=== PATIENT | female | born 1995 | race Caucasian/White ===

== ENCOUNTER 2017-07-03 09:47 | Emergency (ER) | payer MEDICAID ==
[~2017-07-03] VITALS: Wt 62.0 kg
[~2017-07-03 09:47] MED LIST: AMOX500C2 PO; IBUP-1542 PO; IBUP800T25 PO; ONDA4TAB8 PO
[2017-07-03] MEDS ORDERED: SOD CHLORIDE 0.9% 1,000 ML IV STA (10:44)
[2017-07-03] MEDS ORDERED: ACETAMINOPHEN 500 MG TAB PO STA (10:44)
[2017-07-03] MEDS ORDERED: MECLIZINE 12.5 MG TAB PO ONE (11:00)
[2017-07-03] MEDS ORDERED: ONDA4TAB14 PO (12:50)
[2017-07-03] MEDS ORDERED: MECL12.574 PO (12:50)
[2017-07-03] MEDS ORDERED: ACET500C5 PO (12:51)
[2017-07-03 13:27] VITALS: BP 101/61; PULSE 65; RESP 18; TEMP 98.1
--- NOTE | 2017-07-03 13:54 | ERD ---
ER Documentation Chief Complaint Date/Time DATE: 07/03/17 TIME: 13:48 Chief Complaint cam few days HPI Patient a 22-year-old female with no past medical emergency department for concerns of a headache and dizziness comes 3 days. Patient describes the pain to be on her right frontal and temporal region. She denies any sudden, 10 out of 10, worsening onset of her headache. Patient describes the pain to be throbbing in nature. Patient states her current pain level is a 3 out of 10. Patient states she took only 1 tablet of ibuprofen yesterday with no alleviation of symptoms. Patient also reports nausea and vomiting. She also reports intermittent episodes of dizziness which last less than 1 minute. Patient states she is also feeling as if the room is spinning. Patient states with positional changes she has increasing sensation of dizziness. Patient denies any falls. Patient denies any extremity weakness or difficulty with ambulating. She denies any head injury, blurry vision, dysphagia, chest pain, shortness of breath, left upper extremity pain, diaphoresis or loss of consciousness. Patient denies any hearing changes, ear pain or recent viral URIs. ROS All systems reviewed and are negative except as per history of present illness. Medications Home Meds Active Scripts Acetaminophen* (Tylophen*) 500 Mg Capsule, 1 CAP PO Q6H Y for PAIN AND OR ELEVATED TEMP, #20 CAP Prov:JODY CABRERA PA-C 07/03/17 Ondansetron (Ondansetron Odt) 4 Mg Tab.rapdis, 4 MG PO Q6H Y for NAUSEA AND/OR VOMITING, #10 TAB Prov:JODY CABRERA PA-C 07/03/17 Meclizine Hcl* (Antivert*) 12.5 Mg Tab, 12.5 MG PO Q6H Y for DIZZINESS, #20 TAB Prov:JODY CABRERA PA-C 07/03/17 Amoxicillin* (Amoxicillin*) 500 Mg Cap, 500 MG PO TID for 10 Days, CAP Prov:DWIGHT LYNN MD 01/24/16 Ibuprofen* (Motrin*) 600 Mg Tab, 600 MG PO Q6H Y for PAIN AND OR ELEVATED TEMP, #30 TAB Prov:DWIGHT LYNN MD 01/24/16 Ibuprofen* (Motrin*) 800 Mg Tab, 800 MG PO Q6, #30 TAB Prov:KARINA ISIDRO PA-C 06/14/15 Allergies Allergies: Coded Allergies: No Known Drug Allergies (Verified Allergy, Unknown, 01/24/16) PMhx/Soc Medical and Surgical Hx: pt denies Medical Hx, pt denies Surgical Hx Hx Alcohol Use: No Hx Substance Use: No Hx Tobacco Use: No Smoking Status: Never smoker Physical Exam Vitals Vital Signs Date Time Temp Pulse Resp B/P Pulse Ox O2 Delivery O2 Flow Rate FiO2 07/03/17 13:27 98.1 65 18 101/61 99 Room Air 07/03/17 09:49 98.0 83 18 106/69 99 Physical Exam GENERAL: Well-developed, well-nourished female. Appears in no acute distress. Speaking in full sentences HEAD: Normocephalic, atraumatic. No deformities or ecchymosis. EYE: Pupils equal, round, and reactive to light. EOMs intact. No conjunctival erythema. No eye discharge. ENT: External ear without any masses or tenderness. Cerumen noted. TM visualized bilaterally, non-erythematous, non-bulging. Nasal mucosa pink with no discharge. Oropharynx is pink without any tonsillar erythema or exudates. NECK: Supple. No meningismus. Normal ROM of the neck. LUNG: Clear to auscultation bilaterally. No rhonchi, wheezing, rales or coarse breath sounds. HEART: Regular rate and rhythm. No murmurs, rubs or gallops. BACK: No midline tenderness. EXTREMITES: Equal pulses bilaterally. No peripheral clubbing, cyanosis or edema. No unilateral leg swelling. NEUROLOGIC: Alert and oriented x3, cooperative. Mood and affect appropriate to situation. Cranial nerves II through XII are grossly intact. Normal speech. Motor exam: 5/5 strength in upper and lower extremities. Sensory exam: Sensation intact to light touch on all four extremities. Cerebellar function exam: Rapid alternating movements intact. No dysmetria on [id number] test. Steady gait. No pronator drift. SKIN: Normal color. Warm and dry. No rashes or lesions. Results 24 hrs Current Medications Medications (Trade) Dose Ordered Sig/Karrie Route PRN Reason Start Time Stop Time Status Last Admin Dose Admin Sodium Chloride (NS) 1,000 ml @ 1,000 mls/hr Q1H STAT IV 07/03/17 10:44 07/03/17 11:43 DC 07/03/17 11:19 Acetaminophen (Tylenol Tab) 1,000 mg ONCE STAT PO 07/03/17 10:44 07/03/17 10:47 DC 07/03/17 11:17 Meclizine HCl (Antivert) 12.5 mg ONCE ONCE PO 07/03/17 11:00 07/03/17 11:01 DC 07/03/17 11:17 Procedures/MDM ED COURSE: The patient was stable throughout ED course. I kept the patient and/or family informed of laboratory and diagnostic imaging results throughout the ED course. MEDICATIONS GIVEN: IV fluids, meclizine, Tylenol Patient tolerated medication well with no adverse reactions. Patient reported improvement in pain. MEDICAL DECISION MAKING: This is a 22-year-old female who presents with headache and dizziness 3 days. Vital signs were reviewed. Patient was afebrile. Patient was not hypoxic. Patient states that the room is spinning. Episodes are intermittent lasting less than 1 minute. The dizziness is worse with sitting up and standing up. The patient denied any recent URIs. The patient denied hearing loss, diplopia or dysphagia. Neuro exam was normal. Urine test was negative. Patient had significant improvement in symptoms after giving fluids and Meclizine. Given these findings, the patient's presentation is most consistent with benign paroxysmal positional vertigo. I have a much lower clinical concern for intracranial hemorrhage, cerebral infarct, intracranial mass, acute focal neurological deficit, labyrinthitis, vestibular neuritis, Meniere's disease, ear foreign body or acute otitis media. PRESCRIPTIONS: Meclizine Zofran DISCHARGE: At this time, patient is stable for discharge and outpatient management. I have instructed the patient to follow-up with his/her primary care physician in 1-2 days. If symptoms persist, patient may need to see a specialist for further examinations and testing. I have instructed the patient to promptly return to the ER at any time for any new or worsening symptoms including increased increased pain, fever, nausea, vomiting, numbness, weakness, slurred speech, LOC. The patient and/or family expressed understanding of and agreement with this plan. All questions were answered. Home care instructions were provided. Departure Diagnosis: Primary Impression: Benign paroxysmal positional vertigo Laterality: unspecified laterality Qualified Code: H81.10 - Benign paroxysmal positional vertigo, unspecified laterality Condition: Stable Patient Instructions: Benign Positional Vertigo Referrals: GURPREET LESTER MD,WHIT TALAVERA,FADUMO LOWE MD, M.D., MICHAEL D MD PATEL,MANSI GALLEGO,RICKY MAS,[facility] YOU HAVE RECEIVED A MEDICAL SCREENING EXAM AND THE RESULTS INDICATE THAT YOU DO NOT HAVE A CONDITION THAT REQUIRES URGENT TREATMENT IN THE EMERGENCY DEPARTMENT. FURTHER EVALUATION AND TREATMENT OF YOUR CONDITION CAN WAIT UNTIL YOU ARE SEEN IN YOUR DOCTORS OFFICE WITHIN THE NEXT 1-2 DAYS. IT IS YOUR RESPONSIBILITY TO MAKE AN APPOINTMENT FOR FOLOW-UP CARE. IF YOU HAVE A PRIMARY DOCTOR --you should call your primary doctor and schedule an appointment IF YOU DO NOT HAVE A PRIMARY DOCTOR YOU CAN CALL OUR PHYSICIAN REFERRAL HOTLINE AT IF YOU CAN NOT AFFORD TO SEE A PHYSICIAN YOU CAN CHOSE FROM THE FOLLOWING [facility] [address] [facility] [address] [employer] [facility] [address] [facility] [address] [facility] [address] [facility]. [facility] [address] [facility]. [facility] YOU HAVE RECEIVED A MEDICAL SCREENING EXAM AND THE RESULTS INDICATE THAT YOU DO NOT HAVE A CONDITION THAT REQUIRES URGENT TREATMENT IN THE EMERGENCY DEPARTMENT. FURTHER EVALUATION AND TREATMENT OF YOUR CONDITION CAN WAIT UNTIL YOU ARE SEEN IN YOUR DOCTORS OFFICE WITHIN THE NEXT 1-2 DAYS. IT IS YOUR RESPONSIBILITY TO MAKE AN APPOINTMENT FOR FOLOW-UP CARE. IF YOU HAVE A PRIMARY DOCTOR --you should call your primary doctor and schedule and appointment IF YOU DO NOT HAVE A PRIMARY DOCTOR YOU CAN CALL OUR PHYSICIAN REFERRAL HOTLINE AT . IF YOU CAN NOT AFFORD TO SEE A PHYSICIAN YOU CAN CHOSE FROM THE FOLLOWING [facility] INSTITUTIONS: [facility] [address] [place] [address] [facility] [address] [place] [address] [address] Additional Instructions: Call your primary care doctor TOMORROW for an appointment during the next 1-2 days.See the doctor sooner or return here if your condition worsens before your appointment time. Follow up with ENT. JODY CABRERA PA-C Jul 03, 2017 13:54
== END 2017-07-03 13:28 | disposition home or self-care (01) ==
LOC: MERGE 09:47 → FTE 09:47
DX: H81.13 Benign paroxysmal vertigo, bilateral (principal)
CPT/HCPCS: J7030; Z7502; Z7610; 99283

== ENCOUNTER 2017-12-18 18:13 | Emergency (ER) | END 2017-12-18 20:37 | disposition home or self-care (01) ==

== ENCOUNTER 2018-12-13 12:46 | Emergency (ER) | payer SELFPAY ==
[~2018-12-13] VITALS: Ht 170.2 cm; Wt 61.9 kg
[~2018-12-13 12:46] MED LIST changes: +ACET500C5 PO; +BENZ-6 PO; +CETI10CA PO; -IBUP800T25 PO; +IBUP800T48 PO; +MECL12.574 PO; +ONDA4TAB14 PO
[2018-12-13 12:50] VITALS: BP 130/83; PULSE 102; RESP 18; Ht 170.2 cm; Wt 61.9 kg
== END 2018-12-13 15:37 | disposition left against medical advice (07) ==
LOC: FTE 12:46
DX: Z53.21 Procedure and treatment not carried out due to patient leaving prior to being seen by health care provider (principal)

== ENCOUNTER 2018-12-15 00:51 | Emergency (ER) | payer SELFPAY ==
[~2018-12-15] VITALS: Ht 167.6 cm; Wt 63.1 kg
[2018-12-15 00:57] VITALS: BP 119/70; PULSE 85; RESP 16; Ht 167.6 cm; Wt 63.1 kg
[2018-12-15] MEDS ORDERED: IBUP-1542 PO (15:23)
[2018-12-15] MEDS ORDERED: BENZ-6 PO (15:23)
[2018-12-15] MEDS ORDERED: AMOX500C2 PO (15:23)
== END 2018-12-15 04:00 | disposition left against medical advice (07) ==
LOC: FTE 00:51
DX: Z53.21 Procedure and treatment not carried out due to patient leaving prior to being seen by health care provider (principal)

== ENCOUNTER 2018-12-15 10:45 | Emergency (ER) | payer BC, OTHER ==
[~2018-12-15] VITALS: Ht 170.2 cm; Wt 63.5 kg
[2018-12-15 10:50] VITALS: BP 125/72; PULSE 75; RESP 17; Ht 170.2 cm; Wt 63.5 kg
[2018-12-15] MEDS ORDERED: KETOROLAC 60 MG INJ IM STA (14:36)
[2018-12-15] MEDS ORDERED: BENZ-6 PO (15:23)
[2018-12-15] MEDS ORDERED: IBUP-1542 PO (15:23)
[2018-12-15] MEDS ORDERED: AMOX500C2 PO (15:23)
--- NOTE | 2018-12-15 16:07 | ERD ---
ER Documentation Chief Complaint Chief Complaint RT EAR PAIN X 2 DAYS WITH DRAINAGE (CLEAR) HPI 23-year-old female patient with no significant past medical history presents to the ED complaining of right ear pain that started 2 days ago with drainage. States that started 2 days ago. Reports that she has had some cough with phlegm, body aches, congestion. Denies any sick contacts. Denies any fever, chills, nausea, vomiting, diarrhea, constipation, chest pain, shortness of breath, neck stiffness. ROS All systems reviewed and are negative except as per history of present illness. Medications Home Meds Active Scripts Benzonatate* (Tessalon Perle*) 100 Mg Capsule, 100 MG PO Q8H PRN for COUGH, #20 CAP Prov:MAXIM MITCHELLC 12/15/18 Amoxicillin* (Amoxicillin*) 500 Mg Cap, 500 MG PO TID for 10 Days, CAP Prov:MAXIM MITCHELLC 12/15/18 Ibuprofen* (Motrin*) 600 Mg Tab, 600 MG PO Q6, #30 TAB Prov:MAXIM MITCHELLC 12/15/18 Amoxicillin* (Amoxicillin*) 500 Mg Cap, 500 MG PO TID for 10 Days, CAP Prov:EROS BULL NP 12/18/17 Cetirizine Hcl* (Zyrtec*) 10 Mg Capsule, 10 MG PO DAILY, #30 TAB.CHEW Prov:EROS BULL NP 12/18/17 Ibuprofen* (Motrin*) 600 Mg Tab, 600 MG PO Q6H PRN for PAIN AND OR ELEVATED TEMP, #30 TAB Prov:EROS BULL [employer]IOR [employer]ODUCT DEVELOPMENT ENGINEER 12/18/17 Benzonatate* (Tessalon Perle*) 100 Mg Capsule, 100 MG PO Q8H PRN for COUGH, #20 CAP Prov:EROS BULL SENIOR PRODUCT DEVELOPMENT ENGINEER 12/18/17 Acetaminophen* (Tylophen*) 500 Mg Capsule, 1 CAP PO Q6H PRN for PAIN AND OR ELEVATED TEMP, #20 CAP Prov:JODY CABRERA PA-C 07/03/17 Ondansetron (Ondansetron Odt) 4 Mg Tab.rapdis, 4 MG PO Q6H PRN for NAUSEA AND/OR VOMITING, #10 TAB Prov:JODY CABRREAC 07/03/17 Meclizine Hcl* (Antivert*) 12.5 Mg Tab, 12.5 MG PO Q6H PRN for DIZZINESS, #20 TAB Prov:JODY CABRERA PA-C 07/03/17 Ibuprofen* (Motrin*) 600 Mg Tab, 600 MG PO Q6, #30 TAB Prov:ROSE MARIE BERG PA-C 05/24/16 Ondansetron Hcl* (Zofran*) 4 Mg Tablet, 4 MG PO Q6H for NAUSEA AND/OR VOMITING, #30 TAB Prov:ROSE MARIE BERG PA-C 05/24/16 Amoxicillin* (Amoxicillin*) 500 Mg Cap, 500 MG PO TID for 10 Days, CAP Prov:DWIGHT LYNN MD 01/24/16 Ibuprofen* (Motrin*) 600 Mg Tab, 600 MG PO Q6H PRN for PAIN AND OR ELEVATED TEMP, #30 TAB Prov:DWIGHT LYNN MD 01/24/16 Ibuprofen* (Motrin*) 800 Mg Tab, 800 MG PO Q6, #30 TAB Prov:KARINA ISIDRO PA-C 06/14/15 Allergies Allergies: Coded Allergies: No Known Drug Allergies (Verified Allergy, Unknown, 07/05/17) PMhx/Soc Hx Alcohol Use: No Hx Substance Use: No Hx Tobacco Use: No Smoking Status: Current every day smoker FmHx Family History: No diabetes, No coronary disease Physical Exam Vitals Vital Signs Date Temp Pulse Resp B/P (MAP) Pulse Ox O2 O2 Flow FiO2 Time Delivery Rate 12/15/18 98.3 75 17 125/72 100 10:50 (89) Physical Exam Const: [id number], well-nourished. In no acute distress. Head: Atraumatic, normocephalic Eyes: Normal Conjunctiva without injection. No purulent discharge. PERRL. EOMI ENT: Normal external ear. Right erythematous ear canal with decreased light reflex as well as possible ruptured TM. No tenderness palpation of the tragus or mastoid bilaterally. Nasal canal clear with normal turbinates. Moist oropharynx without tonsillar exudates. Non-erythematous pharynx. Uvula midline. No drooling. No trismus. Neck: Full range of motion. No meningismus. No cervical lymphadenopathy. Resp: Clear to auscultation bilaterally. No wheezing, rhonchi, rales, or crackles. No accessory muscle use. No retractions. Cardio: Regular rate and rhythm. No murmurs, rubs or gallops. Abd: Soft, non tender, non distended. Normal bowel sounds. No palpable masses. No rebound tenderness. No guarding. Skin: No petechiae or rashes Back: No midline tenderness. No CVA tenderness. Ext: No cyanosis, or edema. Neur: Awake and alert. Psych: Normal Mood and Affect Results 24 hrs Laboratory Tests Test 12/15/18 15:19 POC Beta HCG, Qualitative NEGATIVE Current Medications Medications Dose Sig/Karrie Start Time Status Last (Trade) Ordered Route PRN Stop Time Admin Dose Reason Admin Ketorolac 60 mg ONCE STAT 12/15/18 DC 12/15/18 Tromethamine IM 14:36 12/15/18 15:23 (Toradol) 14:37 Procedures/MDM 23-year-old female patient with no significant past medical history presents to ED complaining of right ear pain that started 2 days ago. Patient also has associated symptoms of cough, body aches, congestion. Patient is afebrile and nontoxic-appearing. She will be treated for an infected ruptured TM with amoxicillin on outpatient basis as well as for her viral syndrome. Patient does not have tenderness to palpation of tragus or mastoid. Low suspicion for otitis externa or mastoiditis. Patient's physical exam include lungs which were clear to auscultation and a normal pulse oximetry. Patient is speaking in full sentences. There is a low suspicion for tympanic membrane rupture, pneumonia, epiglottitis, croup, vir al/strep pharyngitis, sinusitis, peritonsillar abscess, retropharyngeal abscess, meningitis, sepsis, acute abdomen or other emergent conditions. Diagnosis: Left Ear Pain, Cough Discharge medications: Amoxicillin, Ibuprofen, Promethazine DM Follow up with primary care physician in 1-2 days. Instructed patient to return to the ED sooner for any worsening symptoms. Patient's questions were answered. Patient is hemodynamically stable. Patient understood and agreed with discharge plan. Patient discharged stable. Disclaimer: Inadvertent spelling and grammatical errors are likely due to EHR/dictation software use and do not reflect on the overall quality of patient care. Also, please note that the electronic time recorded on this note does not necessarily reflect the actual time of the patient encounter. Departure Diagnosis: Primary Impression: Left ear pain Additional Impressions: Cough Body aches Condition: Stable Patient Instructions: Ruptured Tm, Infected (Adult), Viral Syndrome (Adult) Referrals: [facility] YOU HAVE RECEIVED A MEDICAL SCREENING EXAM AND THE RESULTS INDICATE THAT YOU DO NOT HAVE A CONDITION THAT REQUIRES URGENT TREATMENT IN THE EMERGENCY DEPARTMENT. FURTHER EVALUATION AND TREATMENT OF YOUR CONDITION CAN WAIT UNTIL YOU ARE SEEN IN YOUR DOCTORS OFFICE WITHIN THE NEXT 1-2 DAYS. IT IS YOUR RESPONSIBILITY TO MAKE AN APPOINTMENT FOR FOLOW-UP CARE. IF YOU HAVE A PRIMARY DOCTOR --you should call your primary doctor and schedule an appointment IF YOU DO NOT HAVE A PRIMARY DOCTOR YOU CAN CALL OUR PHYSICIAN REFERRAL HOTLINE AT IF YOU CAN NOT AFFORD TO SEE A PHYSICIAN YOU CAN CHOSE FROM THE FOLLOWING [facility] [address] [facility]ITAL[facility]. [facility] [address] [employer] [facility]. [facility] [address] [facility] [facility] [address] [facility] [address] [facility]. [facility]. [address] [facility]. [facility] YOU HAVE RECEIVED A MEDICAL SCREENING EXAM AND THE RESULTS INDICATE THAT YOU DO NOT HAVE A CONDITION THAT REQUIRES URGENT TREATMENT IN THE EMERGENCY DEPARTMENT. FURTHER EVALUATION AND TREATMENT OF YOUR CONDITION CAN WAIT UNTIL YOU ARE SEEN IN YOUR DOCTORS OFFICE WITHIN THE NEXT 1-2 DAYS. IT IS YOUR RESPONSIBILITY TO MAKE AN APPOINTMENT FOR FOLOW-UP CARE. IF YOU HAVE A PRIMARY DOCTOR --you should call your primary doctor and schedule and appointment IF YOU DO NOT HAVE A PRIMARY DOCTOR YOU CAN CALL OUR PHYSICIAN REFERRAL HOTLINE AT . IF YOU CAN NOT AFFORD TO SEE A PHYSICIAN YOU CAN CHOSE FROM THE FOLLOWING [facility] INSTITUTIONS: [facility] [address] [place] [address] [facility] [address] [place] [address] [facility] [address] [place] [address] [facility] Additional Instructions: Call your primary care doctor TOMORROW for an appointment during the next 2-3 days.See the doctor sooner or return here if your condition worsens before your appointment time. MAXIM MITCHELL PA-C Dec 15, 2018 16:07
== END 2018-12-15 15:32 | disposition home or self-care (01) ==
LOC: FTE 10:45
DX: H92.01 Otalgia, right ear (principal); R05 Cough; F17.210 Nicotine dependence, cigarettes, uncomplicated
CPT/HCPCS: 81025; 96372; 99284; J1885

== ENCOUNTER 2019-07-08 06:49 | Emergency (ER) | payer BC, OTHER ==
[~2019-07-08] VITALS: Ht 170.2 cm; Wt 66.1 kg
[~2019-07-08 06:49] MED LIST changes: +CYCL10TA7 PO; +HYDR-4011 PO
[2019-07-08 06:50] VITALS: BP 123/71; PULSE 97; RESP 18; Ht 170.2 cm; Wt 66.1 kg
[2019-07-08] MEDS ORDERED: KETOROLAC 30 MG INJ IM STA (07:15)
== END 2019-07-08 09:24 | disposition home or self-care (01) ==
LOC: FTE 06:49
DX: M79.601 Pain in right arm (principal); Z33.1 Pregnant state, incidental
CPT/HCPCS: 81025; 84702; 99282; J1885